=== PATIENT | female | born 1950 | race Caucasian/White ===

== ENCOUNTER 2020-06-15 00:23 | Emergency (ER) | payer OTHER ==
[~2020-06-15] VITALS: Ht 170.2 cm; Wt 52.2 kg
== END 2020-06-15 07:58 | disposition short-term general hospital (02) ==
LOC: ED 00:23
DX: S72.141A Displaced intertrochanteric fracture of right femur, initial encounter for closed fracture (principal); W01.0XXA Fall on same level from slipping, tripping and stumbling without subsequent striking against object, initial encounter; Z87.891 Personal history of nicotine dependence
CPT/HCPCS: 51702; 71045; 73502; 80053; 81001; 85025; 99284-25; C9803; J2405; J3010; J7030; U0003

== ENCOUNTER 2022-03-25 06:45 | Day surgery (SDC) | payer OTHER ==
--- NOTE | 2022-03-10 15:12 | NUR ---
CASE SCHEDULED FOR 03/[address] FISHER. CALL PLACED TO PT TO LET HER KNOW.
[~2022-03-25] VITALS: Ht 170.2 cm; Wt 52.3 kg
--- NOTE | 2022-03-25 10:41 | NUR ---
PT ALERT, ORIENTED AND SITTING UPRIGHT IN BED READING A BOOK.PT SEEMS RELAXED BUT CHILLED. SAID SHE IS ALWAYS COLD. GAVE COMFORT, PT REQUESTED PRAYER, HAS RIDE ARRANGED FOLLOWING DC WITH FAMILY
[2022-03-25] MEDS ORDERED: CIPRO500 MG PO (11:53)
[2022-03-25] MEDS ORDERED: OXYCODONE HCL5 MG PO (11:54)
--- NOTE | 2022-03-25 12:17 | NUR ---
03/25/22 1217 Kimmy Michele 1130 PT ARRIVED IN PACU SLEEPY. 1145 DR AT BEDSIDE TALKING TO PT. 1200 WARM BLANKETS GIVEN FOR C/O FEELING COLD. 1210 TO DS. REPORT GIVEN TO RN. CALL LIGHT IN PLACE.
--- NOTE | 2022-03-25 12:34 | NUR ---
[id number] BACK TO ROOM 12 FROM PACU ON RA. RECEIVED REPORT FROM ROBY. PATIENT IS AWAKE. RATES PAIN 2/10 AND THIS IS TOLERABLE FOR HER. STATES "SOME NAUSEA". DECLINES MEDICATION. BED RAILS UP. STATES "I NEED TO PEE". CALL LIGHT WITHIN REACH. [id number] UP TO BEDSIDE COMMODE. GAIT STEADY. AND TOLERATED WELL. STATES "I NEED A EMESIS BAG". PATIENT IS DRY HEAVING. PATIENT UNABLE TO VOID. RED DRAINAGE NOTED IN THE COMMODE. [id number] BACK TO BED. STATES FEEL BETTER AFTER DRY HEAVING. DECLINES MEDICATION AT THIS TIME. BETTYE REYES TURNED ON. CALL LIGHT WITHIN REACH. FAMILY JUST ARRIVED.
--- NOTE | 2022-03-25 13:19 | NUR ---
PT REPORTS THAT SHE IS FEELING BETTER. SHE WOULD LIKE TO TRY SOME WATER, APPLE SAUCE, AND SALTINE CRACKERS. SHE DENIES PAIN AT THIS TIME. CALL LIGHT IS WITHIN REACH. NO ADDITIONAL NEEDS OR CONCERNS. DISCHARGE CRITERIA IS REVIEWED WITH THE PT.
--- NOTE | 2022-03-25 13:39 | NUR ---
PT IS ASSISTED UP OOB WITH STANDBY ASSIST. SHE TRANSFERS TO BEDSIDE COMMODE AND VOIDS QUANTITY SUFFICIENT. SHE IS TOLERATING CRACKERS, WATER, AND APPLE SAUCE. SHE IS EDUCATED THAT SHE HAS MET ALL DC CRITERIA AND SHE CAN GO HOME WHEN READY.
--- NOTE | 2022-03-25 14:48 | NUR ---
[id number] AWAKE LAYING IN BED. RESP EVEN AND UNLABORED. STATES DISCOMFORT IN HER BACK. STATES "SOME NAUSEA" DECLINES MEDICATION, ASKING FOR APPLESAUCE. FAMILY IN ROOM. CALL LIGHT WITHIN REACH. APPLESAUCE GIVEN.
--- NOTE | 2022-03-25 15:05 | NUR ---
LE 1445: PT IS HELPED OOB WITH STANDBY ASSIST. SHE AMBULATES HERSELF TO THE BATHROOM, WHERE SHE REPORTS A "GOOD PEE." SHE IS ABLE TO AMBULATE BACK TO HER ROOM. SHE IS EDUCATED ON HOW TO BEST DRESS HERSELF AND TO OPEN HER CURTAIN WHEN SHE IS READY. LE 1455: PT IS GIVEN VERBAL AND WRITTEN DISCHARGE INSTRUCTIONS. HER QUESTIONS ARE ASKED AND ANSWERED. SHE IS TAKEN TO PERSONAL VEHICLE VIA WC. SHE IS ABLE TO TRANSFER HERSELF FROM WC TO PERSONAL VEHICLE.
--- NOTE | 2022-03-26 08:52 | OR ---
[facility] [address] [place], [place] [address] Signed DATE OF OPERATION: 03/25/2022 SURGEON: Darío Fisher MD PREOPERATIVE DIAGNOSES: 1. A 15 mm to mid pole left renal calculus. 2. Intermittent flank pain and gross hematuria, secondary to 15 mm to mid pole left renal calculus. POSTOPERATIVE DIAGNOSES: 1. A 15 mm to mid pole left renal calculus. 2. Intermittent flank pain and gross hematuria, secondary to 15 mm to mid pole left renal calculus. NAMES OF PROCEDURES: 1. Diagnostic cystoscopy with left retrograde pyelogram. 2. Left flexible nephroureteroscopy with laser lithotripsy and basket extraction of stone fragments. 3. Insertion of a 6 x 24 cm indwelling left ureteral stent. 4. Urethral dilation using straight sounds from 18-Niuean to 26-Niuean. ANESTHESIA: General. ESTIMATED BLOOD LOSS: Minimal. COMPLICATIONS: None. SPECIMENS: Multiple stone fragments sent to the lab for stone analysis. DRAINS: A 6 x 24 cm double-J ureteral stent inserted in the left ureter. INDICATION FOR PROCEDURE: Ms. Navarro is a very pleasant 71-year-old female who initially met me to undergo a workup for intermittent bouts of gross hematuria. Both her cystoscopy and urine cytology were unremarkable. However, she underwent a CT IVP, which revealed a nonobstructing mid pole Electronically Signed By: DARÍO FISHER MD 03/26/22 0852 PATIENT NAME: [facility] RE[facility] DATE OF : 50 REPORT #: [id number] PHYSICIAN: DARÍO FISHER MD PCP: JUDY WHITE MD REPORT IS CONFIDENTIAL AND NOT TO BE RELEASED WITHOUT AUTHORIZATION [facility] [address], [place] [address] Signed 15 mm left renal calculus. This was determined to be the likely source of her intermittent gross hematuria. After discussion of the risks and benefits of ureteroscopy, the patient elected to undergo left flexible nephroureteroscopy, laser lithotripsy and basket extraction of stones for definitive treatment of her large left renal calculus. OPERATIVE FINDINGS: 1. On cystoscopy, there was no evidence of any suspicious masses, lesions, or stones. Bilateral ureteral orifices are somewhat diminutive in nature but however are otherwise in their normal anatomic location and effluxing clear urine. 2. Left retrograde pyelogram revealed a normal caliber ureter and no evidence of any calyceal dilation within the left renal pelvis. However, there was a very large round and smooth filling defect within the left renal pelvis that is consistent with her known 15 mm left renal calculus. 3. Left flexible nephroscopy was performed, which revealed again a 15 mm stone in her left renal pelvis. This stone was fragmented using a holmium laser at 1 and 0.8 settings with a 400 micron fiber. The stone fragmented relatively easily. I was able to dust a good deal of the stone and the remainder of the stone was remaining semi large fragments were extracted using a Zero tip basket. On the whole, majority of the stone was fragmented to very small 1 mm or less fragments. I anticipate that these will be able to pass down the ureter in the next 2 to 3 weeks. 4. A 6 x 24 cm double-J ureteral stent was inserted into the left ureter under direct visualization without difficulty. DESCRIPTION OF PROCEDURE: After informed consent was obtained, the patient was taken back to the operating room. She was transferred [facility] to the operating room table, where general anesthesia was induced. She was placed in the dorsal lithotomy position and genitalia prepped and draped in standard sterile fashion. Using a 30-degree lens on a 22.5 Niuean introducer, rigid cystoscope was inserted through the urethra and into her bladder under direct visualization. Panendoscopic views of the bladder were then obtained. Please see above findings. Attention was turned to the left ureteral orifice, which again was quite diminutive in size. With the help of a cone-tipped catheter, I was able to pass a 0.035 Sensor wire through the ureteral orifice and up to the left collecting system. Adequate placement of the wire was confirmed on fluoroscopy. Over the wire, I passed an 05/05 ureteral access sheath into the left collecting system under fluoroscopic guidance. This was performed without difficulty. I performed a left retrograde pyelogram via the ureteral access sheath with approximately 6 mL of contrast. Please see above findings. I then passed the flexible ureteroscope through the sheath and into the left proximal ureter and left kidney. A thorough diagnostic nephroscopy was performed. Please see above findings. The large stone was sitting right within the left renal pelvis. The stone was fragmented using a holmium laser and a 400 micron Electronically Signed By: DARÍO FISHER MD 03/26/22 0852 PATIENT NAME: LOREE NAVARRO [facility] OPERATIVE REPORT DATE OF : 50 REPORT #: [id number] PHYSICIAN: DARÍO FISHER MD PCP: JUDY WHITE MD REPORT IS CONFIDENTIAL AND NOT TO BE RELEASED WITHOUT AUTHORIZATION [address] [address] Signed fiber at 1 and 0.8 settings. I was able to thoroughly fragment the stone down to approximately 1-2 mm pieces. All of the 2 and 3 mm pieces were successfully extracted using a Zero tip basket. I also thoroughly irrigated the left renal pelvis as there was a good deal of stone dust present as a result of the intrarenal laser fragmentation. Once I was satisfied all the significant stone pieces were extracted, I removed the left ureteroscope. I reinserted a Sensor wire through the sheath and into the left renal pelvis. The ureteral access sheath was then removed fully intact. Over the wire, I passed a 6 x 24 cm double-J ureteral stent into the left collecting system under direct visualization without difficulty. Once I pulled the wire an adequate proximal coil was seen within the left renal pelvis. An adequate distal coil was noted on cystoscopy. The patient's bladder was then drained and the cystoscope was removed. The procedure was then terminated. The patient tolerated the procedure well. No complication. The patient will be transferred to the postanesthesia care unit in stable condition. DISPOSITION: I discussed the details of today's procedure with the patient's sister, Georgette Escobar and answered all of her questions. I notified the sister that the stone was successfully fragmented and the large pieces were extracted today. She will need to keep the stent in place for at least a couple of weeks and we will need to maximize her hydration. She will be sent home today with oxycodone 5 mg one tablet p.o. q.6 hours p.r.n. pain, dispense #30, along with Cipro 250 mg p.o. b.i.d. for a total of 7 days. She will be scheduled to return to clinic in later this month on April 18 to undergo cystoscopy with left ureteral stent extraction. MD JACK Decker/BRADFORD /[id number] Copies: ~ Electronically Signed By: DARÍO FISHER MD 03/26/22 0852 PATIENT NAME: LOREE NAVARROLouise OPERATIVE REPORT DATE OF : 50 REPORT #: [id number] PHYSICIAN: DARÍO FISHER MD PCP: JUDY WHITE MD REPORT IS CONFIDENTIAL AND NOT TO BE RELEASED WITHOUT AUTHORIZATION
== END 2022-03-25 15:00 | disposition home or self-care (01) ==
LOC: DS 06:45
PROVIDERS: ATTEND Urology
DX: N20.0 Calculus of kidney (principal)
CPT/HCPCS: 74450; 82365; C1769; C2617; J0131; J0690; J1100; J1885; J2001; J2405; J2704; J3010; J7121; Q9958

== ENCOUNTER 2022-09-08 13:46 | Emergency (ER) | payer OTHER ==
[~2022-09-08] VITALS: Ht 170.2 cm; Wt 57.7 kg
[~2022-09-08 13:46] MED LIST: CIPRO500 MG PO; OXYCODONE HCL5 MG PO
[2022-09-08] MEDS ORDERED: AMOX TR-K CLV1 EAC1 PO (15:24)
== END 2022-09-08 15:50 | disposition home or self-care (01) ==
LOC: ED 13:46
DX: S91.051A Open bite, right ankle, initial encounter (principal); W55.01XA Bitten by cat, initial encounter; Z87.891 Personal history of nicotine dependence
CPT/HCPCS: 99283